=== PATIENT | male | born 1960 | race Two or more races ===

== ENCOUNTER 2020-02-12 18:10 | Emergency (ER) | payer OTHER ==
[~2020-02-12] VITALS: Ht 170.2 cm; Wt 68.0 kg
[2020-02-12 19:00] VITALS: BP 159/69
[2020-02-12] MEDS ORDERED: KETOROLAC TROMETH 30 MG/ML 1ML VIAL IV ONE (19:15)
[2020-02-12] MEDS ORDERED: KETOROLAC TROMETH 60MG/2ML VIAL IM ONE (19:30)
== END 2020-02-12 19:52 | disposition left against medical advice (07) ==
LOC: EDBD 18:10 → ER 18:23
DX: S90.811A Abrasion, right foot, initial encounter (principal); Z76.5 Malingerer [conscious simulation]; X58.XXXA Exposure to other specified factors, initial encounter; Y93.89 Activity, other specified; Y92.89 Other specified places as the place of occurrence of the external cause; Y99.8 Other external cause status
CPT/HCPCS: 73630; 96372; 99283; J1885